=== PATIENT | male | born 1995 | race Caucasian/White ===

== ENCOUNTER 2017-07-26 19:22 | Emergency (ER) | payer MEDICAID ==
[~2017-07-26] VITALS: Ht 182.9 cm; Wt 54.0 kg
[~2017-07-26 19:22] MED LIST: FLUO10CA66 PO; HYDR-569 PO; POLOS OP
[2017-07-26 19:43] VITALS: BP 126/71
== END 2017-07-26 21:40 | disposition left against medical advice (07) ==
LOC: ER 19:24
DX: R21 Rash and other nonspecific skin eruption (principal); Z53.21 Procedure and treatment not carried out due to patient leaving prior to being seen by health care provider

== ENCOUNTER 2018-09-06 11:22 | Emergency (ER) | payer MEDICAID ==
[~2018-09-06] VITALS: Ht 188 cm; Wt 65.9 kg
[~2018-09-06 11:22] MED LIST changes: +CLIN-96 PO; +HYDR-4383 PO; -HYDR-569 PO
[2018-09-06] MEDS ORDERED: CETI5TAB8 PO (12:16)
[2018-09-06] MEDS ORDERED: GUAI237S46 PO (12:16)
[2018-09-06] MEDS ORDERED: ALBU18HF2 INH (12:16)
[2018-09-06 12:42] VITALS: BP 125/65
== END 2018-09-06 12:27 | disposition home or self-care (01) ==
LOC: ER 11:22
DX: J06.9 Acute upper respiratory infection, unspecified (principal); F12.90 Cannabis use, unspecified, uncomplicated; Z88.2 Allergy status to sulfonamides; Z79.899 Other long term (current) drug therapy; Z56.0 Unemployment, unspecified
CPT/HCPCS: 99283

== ENCOUNTER 2022-04-22 23:04 | Emergency (ER) | payer MEDICAID ==
[~2022-04-22] VITALS: Ht 185.4 cm; Wt 54.5 kg
[~2022-04-22 23:04] MED LIST changes: +ALBU18HF2 INH; +CETI5TAB27 PO; -CLIN-96 PO; +CLIN-97 PO
[2022-04-22 23:07] VITALS: BP 128/84
[2022-04-22] MEDS ORDERED: HYDROcodone/acetaminophen 5mg/325mg tablet PO ONE (23:55)
[2022-04-22] MEDS ORDERED: amox tr/potassium clavulanate 875/125mg TAB PO ONE (23:55)
[2022-04-23] MEDS ORDERED: HYDR-3965 PO (00:02)
[2022-04-23] MEDS ORDERED: AMOX-117 PO (00:02)
[2022-04-23] MEDS ORDERED: CHLO473M2 PO (00:02)
== END 2022-04-23 00:25 | disposition home or self-care (01) ==
LOC: ER 23:04
DX: K08.89 Other specified disorders of teeth and supporting structures (principal); F20.9 Schizophrenia, unspecified; F12.10 Cannabis abuse, uncomplicated; F41.9 Anxiety disorder, unspecified; Z56.0 Unemployment, unspecified; Z88.2 Allergy status to sulfonamides; Z79.899 Other long term (current) drug therapy; Z79.1 Long term (current) use of non-steroidal anti-inflammatories (NSAID); Z79.2 Long term (current) use of antibiotics
CPT/HCPCS: 99283

== ENCOUNTER 2024-02-10 14:34 | Emergency (ER) | payer MEDICAID ==
[~2024-02-10] VITALS: Ht 185.4 cm; Wt 61.4 kg
[~2024-02-10 14:34] MED LIST changes: +CHLO473M2 PO
[2024-02-10 15:59] VITALS: BP 129/70; PULSE 66; RESP 15; TEMP 98; O2SAT 98
== END 2024-02-10 16:02 | disposition home or self-care (01) ==
LOC: ER 14:34
DX: K64.9 Unspecified hemorrhoids (principal); F20.9 Schizophrenia, unspecified; F41.9 Anxiety disorder, unspecified; F12.90 Cannabis use, unspecified, uncomplicated; Z56.0 Unemployment, unspecified; Z60.2 Problems related to living alone; Z88.2 Allergy status to sulfonamides
CPT/HCPCS: 99282

== ENCOUNTER 2024-02-27 11:27 | Emergency (ER) | payer MEDICAID ==
[~2024-02-27] VITALS: Ht 185.4 cm; Wt 56.2 kg
[2024-02-27] MEDS ORDERED: HYDR26CR2 TOP (13:23)
[2024-02-27 13:35] VITALS: BP 113/87; PULSE 67; RESP 14; TEMP 97.8; O2SAT 98
== END 2024-02-27 13:37 | disposition home or self-care (01) ==
LOC: ER 11:28
DX: K64.9 Unspecified hemorrhoids (principal); K92.1 Melena; F20.9 Schizophrenia, unspecified; Z88.1 Allergy status to other antibiotic agents; Z88.2 Allergy status to sulfonamides; Z88.5 Allergy status to narcotic agent
CPT/HCPCS: 99282

== ENCOUNTER 2024-09-06 09:02 | Emergency (ER) | payer MEDICAID ==
[~2024-09-06] VITALS: Ht 185.4 cm; Wt 54.9 kg
[~2024-09-06 09:02] MED LIST changes: +HYDR26CR2 TOP
[2024-09-06] MEDS: ibuprofen tablet 400 MG TABLET PO STA (10:00)
[2024-09-06] MEDS: amoxicillin 250mg capsule PO STA (10:00)
[2024-09-06] MEDS: acetaminophen 325mg tablet PO STA (10:01)
[2024-09-06] MEDS: LIDOcaine 2% Viscous 15ml cup MM STA (10:05)
[2024-09-06] MEDS ORDERED: AMOX875T10 PO (10:21)
[2024-09-06] MEDS ORDERED: IBUP-1986 PO (10:21)
--- NOTE | 2024-09-06 10:26 | Physician Documentation ---
HPI ~ General Chief Complaint: Tooth Problem Stated Complaint: MOUTH PAIN Time Seen by MD: 09:16 Primary Medical Doctor: NONE History of Present Illness HPI Comment Patient is seen today with complaints of dental pain of right lower molar after it broken half. Patient states he is developing pressure in his lower jaw. Patient denies any fever or chills or body aches or nausea, vomiting, diarrhea. Patient has no other concern or complaint at this time. Medication Reconciliation Allergies: Coded Allergies: Sulfa (Sulfonamide Antibiotics) (Verified Allergy, Unknown, throat swelling, 02/10/24) Scheduled Albuterol Sulfate (Ventolin Hfa), 2 PUFFS INH Q4HPRN Amoxicillin Trihydrate (Amoxicillin), 1 TAB PO Q12H Cetirizine HCl (Cetirizine HCl), 1 TAB PO DAILY Chlorhexidine Gluconate (Chlorhexidine Gluconate), 20 ML PO 5XD Clindamycin HCL* (Clindamycin HCL*), 1 CAP PO Q6H Fluoxetine Hcl* (Prozac*), 10 MG PO DAILY, (Reported) Hydrocodone/Acetaminophen ([place] 5-325 Tablet), 1 TABLET PO Q6H Hydrocortisone (Preparation H), 1 APPLIC TOP Q12H Ibuprofen (Ibuprofen), 1 TAB PO Q8H Polymyxin B Sulfate/Tmp Opth* (Polytrim Ophthalmic Drops*), 1 DRP OP Q4HWA Past Medical History Past Medical History: *PSYCH*, Anxiety, Panic Disorder, Schizophrenia Past Surgical History: no surgical history Alcohol Use: Occasionally Drug Use: marijuana Lives with: Family Lives In: Home Occupation: unemployed Review of Systems Constitutional: Denies: chills, fever, weakness Eyes: Denies: pain, blurred vision ENT: Denies: ear pain, nose pain, throat pain, mouth pain Respiratory: Denies: cough, shortness of breath Cardiovascular: Denies: chest pain, palpitations Gastrointestinal: Denies: abdominal pain, nausea, vomiting Genitourinary: Denies: burning, dysuria Male Genitalia: Denies: penile discharge, testicular pain Neurological: Denies: headache, dizziness Musculoskeletal: Denies: pain, swelling Integumentary: Denies: rash, lesions Allergic/Immunologic: Denies: hives, itching Hematologic/Lymphatic: Denies: no symptoms reported Psychiatric: Denies: depression, anxiety Physical Exam Vital Signs: Temperature: 98.1, Heart Rate: 86, Respiratory Rate: 18, BP: 109/72, Pulse Oximetry: 98, Weight: 54.900 Physical Exam General: Awake and Alert, no acute distress. HEENT: Patient on exam has very poor dentition with multiple dental caries and fractured teeth. I do not appreciate any periapical abscess. Conjunctiva pink, Sclera clear, Mucus Membranes moist. Neck: Supple without masses and tenderness. Resp: Unlabored. Lungs clear to auscultation bilaterally. Heart: Regular Rate and rhythm, normal S1 and S2 without murmur, rub or gallop. Abdomen: Soft and non tender no organomegaly Extremities: No cyanosis,clubbing or edema. Skin: Warm and Dry. Progress Results/Orders Results/Orders Completed Orders - SHAE URBAN Lidocaine 2% Viscous (Xylocaine 2% Visco (09/06/24 09:38) Ibuprofen Tablet (Motrin Tablet) (09/06/24 09:38) Acetaminophen 325mg Tablet (Tylenol Tabl (09/06/24 09:38) Amoxicillin Capsule (Trimox Capsule) (09/06/24 09:38) Medications Received in ER Medications (Trade) Dose Ordered Sig/[place] Route PRN Reason Start Time Stop Time Status Last Admin Dose Admin (Xylocaine 2% Viscous 15mL cup) 15 ml ONCE STAT MM 09/06/24 09:38 09/06/24 09:50 DC 09/06/24 10:05 15 ML (Motrin tablet) 800 mg ONCE STAT PO 09/06/24 09:38 09/06/24 09:50 DC 09/06/24 10:00 800 MG (Tylenol tablet) 975 mg ONCE STAT PO 09/06/24 09:38 09/06/24 09:50 DC 09/06/24 10:01 975 MG (Trimox capsule) 1,000 mg ONCE STAT PO 09/06/24 09:38 09/06/24 09:50 DC 09/06/24 10:00 1,000 MG Vital Signs 09/06/24 09/06/24 09:12 10:32 Temp 98.1 98.1 Pulse 86 74 Resp 18 16 B/P (MAP) 109/72 134/78 Pulse Ox 98 97 Medical Decision Making Findings Patient is seen today with complaints of dental pain of right lower molar after it broken half. Patient states he is developing pressure in his lower jaw. Patient denies any fever or chills or body aches or nausea, vomiting, diarrhea. Patient has no other concern or complaint at this time. Patient was given in the ED today viscous lidocaine mouth rinse, ibuprofen 800 mg p.o., amoxicillin a 1000 mg p.o., Tylenol 975 mg p.o. prescriptions of amoxicillin and ibuprofen sent to patient's pharmacy. Patient will follow up with dentist as soon as possible. Patient will return to ED with any worsening, concerning or changing symptoms. Departure Disposition: 01 HOME / SELF CARE / HOMELESS Impression: Primary Impression: Dental abscess Condition: Improved Discharge Instructions: Dental Abscess Additional Instructions: Patient was given in the ED today viscous lidocaine mouth rinse, ibuprofen 800 mg p.o., amoxicillin a 1000 mg p.o., Tylenol 975 mg p.o. prescriptions of amoxicillin and ibuprofen sent to patient's pharmacy. Patient will follow up with dentist as soon as possible. Patient will return to ED with any worsening, concerning or changing symptoms. Referrals: NO PRIMARY CARE PROVIDER (PCP) Prescriptions Ibuprofen (Ibuprofen) 800 Mg Tablet 1 TAB PO Q8H for pain for 10 Days, #30 TAB 0 Refills Prov: SHAE URBAN 09/06/24 Amoxicillin Trihydrate (Amoxicillin) 875 Mg Tablet 1 TAB PO Q12H for 10 Days, #20 TAB Prov: SHAE URBAN 09/06/24 Ibuprofen (Ibuprofen) 800 Mg Tablet 1 TAB PO Q8H for pain for 10 Days, #30 TAB 0 Refills Prov: SHAE URBAN 09/06/24 Amoxicillin Trihydrate (Amoxicillin) 875 Mg Tablet 1 TAB PO Q12H for 10 Days, #20 TAB Prov: SHAE URBAN 09/06/24 Signature Scribe Signature: No scribe Attestation: No scribe SHAE URBAN September 06, 2024 10:26
[2024-09-06 10:32] VITALS: BP 134/78; PULSE 74; RESP 16; TEMP 98.1; O2SAT 97
== END 2024-09-06 10:38 | disposition home or self-care (01) ==
LOC: ER 09:03
DX: K04.7 Periapical abscess without sinus (principal); F20.9 Schizophrenia, unspecified; F41.9 Anxiety disorder, unspecified; F41.0 Panic disorder [episodic paroxysmal anxiety]; F12.90 Cannabis use, unspecified, uncomplicated; Z88.2 Allergy status to sulfonamides; Z79.899 Other long term (current) drug therapy; Z56.0 Unemployment, unspecified; Z72.89 Other problems related to lifestyle
CPT/HCPCS: 99284